=== PATIENT | female | born 1970 | race African-American/Black ===

== ENCOUNTER → 2023-12-02 11:38 | Outpatient (REF) | payer OTHER, SELFPAY ==
[2023-12-02 13:13] LABS: Rubella Positive
[2023-12-02 16:38] LABS: Hepatitis B Surface Antibody Positive
[2023-12-04 15:28] LABS: Quantiferon Mitogen minus NIL 9.99 IU/mL; Quantiferon NIL 0.01 IU/mL; Quantiferon Plus TB1 minus NIL 0.32 IU/mL (<=0.34); Quantiferon Plus TB2 minus NIL 0.23 IU/mL (<=0.34); Quantiferon TB Gold Plus Negative (Negative)
[2023-12-04 15:58] LABS: Rubeola (Measles) IgG Positive; Varicella Zoster IgG (VZV) Positive
== END ==
LOC: OHS 11:38
PROVIDERS: ATTENDING PHYSICIAN Nurse Practitioner Family
DX: Z23 Encounter for immunization (principal)
CPT/HCPCS: 36415; 86480; 86706; 86735; 86762; 86765; 86787